=== PATIENT | female | born 2000 | race African-American/Black ===

== ENCOUNTER 2021-12-10 11:47 | Emergency (ER) | payer BC ==
[~2021-12-10] VITALS: Ht 157.5 cm; Wt 68.0 kg
[2021-12-10] MEDS ORDERED: IV RINGERS,LACTATED 1000ML 1,000 ML IV ONE (12:30)
--- NOTE | 2021-12-10 12:39 | PHYS DOC ---
Past Medical History Past Medical History: No Pertinent History Past Surgical History: No Surgical History Smoking Status: Never Smoker Alcohol Use: None General Adult EDM: Chief Complaint: CONTISPATION HPI: HPI: Patient is a 21 year old female who presents with concerns regarding constipation. She states that the last normal bowel movement she had was about 3 days ago. Since that time, she reports having to strain significantly in order to pass very small, firm bowel movements along with mucus and some blood. Patient denies fever, chills, abdominal pain, nausea, vomiting, dysuria, hematuria. Review of Systems: Review of Systems: Constitutional: See HPI Eyes: Denies change in visual acuity, visual field deficits or discharge HENT: Denies ear pain, nasal congestion or sore throat Respiratory: Denies cough or shortness of breath Cardiovascular: Denies chest pain, palpitations or edema GI: See HPI : See HPI Musculoskeletal: Denies back pain or joint pain Integument: Denies rash or other skin lesion Neurologic: Denies headache, focal weakness or sensory changes Heart Score: C/O Chest Pain: No Current Medications: Current Medications Medications (Trade) Dose Ordered Sig/Phoebe Start Time Stop Time Status Last Admin Dose Admin Ketorolac Tromethamine (Toradol 15mg Vial) 15 mg 1X ONCE 12/10/21 13:00 12/10/21 13:01 Ringer's Solution 1,000 ml @ 1,000 mls/hr 1X ONCE 12/10/21 12:30 12/10/21 13:29 Allergies: Allergies: Allergies Coded Allergies Type Severity Reaction Last Updated Verified No Known Drug Allergies 12/10/21 No Physical Exam: PE: Constitutional: Well developed, well nourished, no acute distress, non-toxic appearance. HENT: Normocephalic, atraumatic, bilateral external ears normal, oropharynx moist, no oral exudates, nose normal. Eyes: EOMI, conjunctiva normal, no discharge. Neck: Normal range of motion, no stridor. Abdomen: Bowel sounds normal, soft, no tenderness, no masses, no pulsatile masses. Rectal: No external hemorrhoids or jeniffer blood appreciated, minimal streaked blood noted on undergarment consistent with per rectum bleeding, sphincter tone intact, palpable nonthrombosed hemorroids. Skin: Warm, dry, no erythema, no rash. Extremities: No tenderness, no cyanosis, no clubbing, ROM intact, no edema. Neurologic: Alert and oriented x4, normal motor function, normal sensory function, no focal deficits noted. Current Patient Data: Labs: Laboratory Tests Test 12/10/21 12:00 12/10/21 12:06 12/10/21 12:35 Urine Collection Type Unknown Urine Color (Auto) Light yellow Urine Turbidity Clear Urine pH (Auto) 7.0 (<5.0-8.0) Urine Specific [place] 1.025 (1.000-1.030) Urine Protein (Auto) Negative mg/dL (Negative) Urine Glucose (Auto)(UA) Negative mg/dL (Negative) Urine Ketones (Auto) Negative mg/dL (Negative) Urine Blood (Auto) Large (Negative) Urine Nitrite Negative (Negative) Urine Bilirubin (Auto) Negative (Negative) Urine Urobilinogen (Auto) Normal mg/dL (Normal) Urine Leukocyte Esterase (Auto) Small (Negative) Urine RBC 20-40 /HPF (0-2) Urine WBC 11-20 /HPF (0-4) Urine Squamous Epithelial Cells Few /LPF Urine Bacteria Few /HPF (0-FEW) Urine Mucus Slight /LPF Bedside Urine HCG, Qualitative Hcg negative (Negative) White Blood Count 7.0 x10^3/uL (4.0-11.0) Red Blood Count 4.30 x10^6/uL (3.50-5.40) Hemoglobin 12.8 g/dL (12.0-15.5) Hematocrit 38.1 % (36.0-47.0) Mean Corpuscular Volume 89 fL (79-100) Mean Corpuscular Hemoglobin 30 pg (25-35) Mean Corpuscular Hemoglobin Concent 34 g/dL (31-37) Red Cell Distribution Width 12.9 % (11.5-14.5) Platelet Count 309 x10^3/uL (140-400) Neutrophils (%) (Auto) 58 % (31-73) Lymphocytes (%) (Auto) 32 % (24-48) Monocytes (%) (Auto) 6 % (0-9) Eosinophils (%) (Auto) 3 % (0-3) Basophils (%) (Auto) 1 % (0-3) Neutrophils # (Auto) 4.0 x10^3/uL (1.8-7.7) Lymphocytes # (Auto) 2.2 x10^3/uL (1.0-4.8) Monocytes # (Auto) 0.4 x10^3/uL (0.0-1.1) Eosinophils # (Auto) 0.2 x10^3/uL (0.0-0.7) Basophils # (Auto) 0.0 x10^3/uL (0.0-0.2) Sodium Level 140 mmol/L (136-145) Potassium Level 3.6 mmol/L (3.5-5.1) Chloride Level 106 mmol/L (98-107) Carbon Dioxide Level 25 mmol/L (21-32) Anion Gap 9 (6-14) Blood Urea Nitrogen 11 mg/dL (7-20) Creatinine 0.8 mg/dL (0.6-1.0) Estimated GFR (Cockcroft-Gault) 107.6 BUN/Creatinine Ratio 14 (6-20) Glucose Level 93 mg/dL (70-99) Calcium Level 8.8 mg/dL (8.5-10.1) Total Bilirubin 0.3 mg/dL (0.2-1.0) Aspartate Amino Transf (AST/SGOT) 19 U/L (15-37) Alanine Aminotransferase (ALT/SGPT) 21 U/L (14-59) Alkaline Phosphatase 74 U/L (46-116) Total Protein 8.0 g/dL (6.4-8.2) Albumin 3.7 g/dL (3.4-5.0) Albumin/Globulin Ratio 0.9 (1.0-1.7) Lipase 51 U/L (73-393) Vital Signs: Vital Signs Date Time Temp Pulse Resp B/P (MAP) Pulse Ox O2 Delivery O2 Flow Rate FiO2 12/10/21 12:00 98.6 70 16 112/61 (78) 100 Room Air 98.6 Radiology/Procedures: Radiology/Procedures: PROCEDURE: CT ABDOMEN PELVIS WO CONTRAST EXAMINATION: Noncontrast CT of the abdomen and pelvis INDICATION: Abdominal pain, UTI, bloody mucus in stool. COMPARISONS: None TECHNIQUE: Axial 3 mm thick sections were obtained without oral or IV contrast. Sagittal and coronal reformats were obtained. FINDINGS: KIDNEYS AND RENAL COLLECTING SYSTEMS RIGHT KIDNEY AND URETER: No evidence of right renal or ureteric calculi. No hydronephrosis. No focal renal lesions, within the limits of this noncontrast examination. LEFT KIDNEY AND URETER: No evidence of left renal or ureteric calculi. No hydronephrosis. No focal renal lesions, within the limits of this noncontrast examination. URINARY BLADDER: Unremarkable OTHER: The visualized lung bases are clear. The evaluation of the solid organs is limited due to lack of IV contrast. The evaluation of bowel is limited due to lack of oral contrast. Liver is normal in size and attenuation. No focal hepatic lesions. The gallbladder, spleen, and renals are unremarkable. Pancreas is grossly unremarkable. There is some haziness adjacent to the uncinate process (axial image 28/2). No main pancreatic ductal dilation. Stomach is unremarkable. There is a moderate colorectal stool burden. No evidence of obstruction or focal inflammatory changes appreciated. Index is not definitely visualized. No pathologically enlarged abdominal or pelvic adenopathy. No significant intra-abdominal free air or fluid. Mild stranding within the root of the mesentery. Mild diastases of the anterior abdominal recti muscles with small umbilical and periumbilical fat-containing hernias. Anteverted normal appearing uterus is present. No suspicious adnexal masses. No acute or suspicious osseous abnormalities. IMPRESSION: 1. No imaging findings to suggest urinary tract infection or obstructive uropathy. 2. Nonspecific fat stranding adjacent to the uncinate process/mesenteric root. This may reflect mesenteric panniculitis, usually an incidental finding of no clinical significance. Recommend correlation with lipase levels to exclude acute pancreatitis. 3. Moderate colorectal stool burden. Recommend clinical correlation for [id number] constipation. PRQS compliance statement - One or more of the following individualized dose reduction techniques were utilized for this study: 1. Automated exposure control 2. Adjustment of the mA and/or kV according to patient size 3. Use of iterative reconstruction technique Electronically signed by: Sulaiman Dunn DO (12/10/2021 2:29 PM) [id number] Course & Med Decision Making: Course & Med Decision Making Pertinent Labs and Imaging studies reviewed. (See chart for details) Exam today reveals UTI with hematuria as well as internal hemorrhoids. Patient was counseled on management of constipation with MiraLAX and Dulcolax. Patient received 1 g IV Rocephin while in the department to treat her UTI. Return precautions were provided. Contact information for GI follow-up was provided, should patient feel the current treatment plan is not effective. Patient understands and is agreeable to discharge plan. Dragon Disclaimer: Dragon Disclaimer: This electronic medical record was generated, in whole or in part, using a voice recognition dictation system. Departure Departure Impression: Primary Impression: Constipation in female Additional Impressions: Internal hemorrhoids without complication Urinary tract infection with hematuria Qualified Codes: N30.01 - Acute cystitis with hematuria Disposition: HOME / SELF CARE / HOMELESS Condition: STABLE Referrals: LUZ MOTA MD Patient Instructions: Constipation, Adult, [id number], Hemorrhoids, [id number], Urinary Tract Infection, [id number] Additional Instructions: EMERGENCY DEPARTMENT GENERAL DISCHARGE INSTRUCTIONS Thank you for coming to [facility] Emergency Department (ED) today and trusting us with you care. We trust that you had a positive experience in our Emergency Department. If you wish to speak to the department management, you may call the director at . YOUR FOLLOW UP INSTRUCTIONS ARE FOLLOWS: 1. Follow up with your primary care doctor. If you do not have a primary doctor, please ask for a resource list of physicians or clinics that may be able to assist you with follow up care. 2. The emergency provider has interpreted your imaging studies, if any were ordered. The radiology it desktop support specialist also reviewed them. If there is a change in the findings, you will be notified in 48 hours when at all possible. 3. If a lab test or culture has been done, your results will be reviewed and you will be notified if you need a change in treatment. 4. Follow instructions verbalized to you and refer to the printouts if needed. ADDITIONAL INSTRUCTIONS AND INFORMATION: 1. Your care today has been supervised by a physician who is specially trained in emergency care. Many problems require more than one evaluation for a complete diagnosis and treatment. We recommend that you schedule your follow up appointment as recommended to ensure complete treatment of you illness or injury. If you are unable to obtain follow up care and continue to have a problem, or if your condition worsens, we recommend that you return to the ED. 2. We are not able to safely determine your condition over the phone nor are we able to give sound medical advice over the phone. For these safety reasons, if you call for medical advice we will ask you to come to the ED for further evaluation. 3. If you have any questions regarding these discharge instructions please call the ED at . SAFETY INFORMATION: In the interest of safety, wellness, and injury prevention; we encourage you to wear your seat belt, if you smoke; quite smoking, and we encourage family to use a protective helmet for bicycling and other sporting events that present an increased risk for head injury. IF YOUR SYMPTOMS WORSEN OR NEW SYMPTOMS DEVELOP, OR YOU HAVE CONCERNS ABOUT YOUR CONDITION; OR IF YOUR CONDITION WORSENS WHILE YOU ARE WAITING FOR YOUR FOLLOW UP APPOINTMENT; EITHER CONTACT YOUR PRIMARY CARE DOCTOR, THE PHYSICIAN WHOSE NAME A ND NUMBER YOU WERE GIVEN, OR RETURN TO THE ED IMMEDIATELY. Scripts Bisacodyl (DULCOLAX) 10 Mg Supp.rect 1 SUPP RC DAILY for constipation for 10 Days, #10 SUPP 0 Refills Prov: KRZYSZTOF LOONEY 12/10/21 Polyethylene Glycol 3350 (MIRALAX) 119 Gm Powder 1 EA PO DAILY for constipation, #527 GM 0 Refills dissolve in water Prov: KRZYSZTOF LOONEY 12/10/21 KRZYSZTOF LOONEY December 10, 2021 12:39
[2021-12-10 12:47] LABS: BASO % 1 % (0-3); EOS # 0.2 x10^3/uL (0.0-0.7); EOS % 3 % (0-3); HEMATOCRIT 38.1 % (36.0-47.0); HEMOGLOBIN 12.8 g/dL (12.0-15.5); LYMPH # 2.2 x10^3/uL (1.0-4.8); LYMPH % 32 % (24-48); MEAN CORPUSCULAR HEMOGLOBIN 30 pg (25-35); MEAN CORPUSCULAR HGB CONC 34 g/dL (31-37); MEAN CORPUSCULAR VOLUME 89 fL (79-100); MONO # 0.4 x10^3/uL (0.0-1.1); MONO % 6 % (0-9); NEUT % 58 % (31-73); PLATELET COUNT 309 x10^3/uL (140-400); RED CELL DISTRIBUTION WIDTH 12.9 % (11.5-14.5)
[2021-12-10] MEDS ORDERED: KETOROLAC 15 MG/ML VIAL. IVP ONE (13:00)
[2021-12-10 13:09] LABS: CALCIUM 8.8 mg/dL (8.5-10.1); CREATININE 0.8 mg/dL (0.6-1.0); GFR 107.6; POTASSIUM 3.6 mmol/L (3.5-5.1)
[2021-12-10 13:15] LABS: ALBUMIN 3.7 g/dL (3.4-5.0); ALBUMIN/GLOBULIN RATIO 0.9 (1.0-1.7); TOTAL BILIRUBIN 0.3 mg/dL (0.2-1.0)
[2021-12-10 13:32] LABS: BACTERIA,URINE FEW /HPF (0-FEW); RBC,URINE 20-40 /HPF (0-2)
[2021-12-10] MEDS ORDERED: cefTRIAXone IV Push 1 GM VIAL. IVP ONE (13:45)
--- NOTE | 2021-12-10 14:31 | RAD ---
EXAMINATION: Noncontrast CT of the abdomen and pelvis INDICATION: Abdominal pain, UTI, bloody mucus in stool. COMPARISONS: None TECHNIQUE: Axial 3 mm thick sections were obtained without oral or IV contrast. Sagittal and coronal reformats were obtained. FINDINGS: KIDNEYS AND RENAL COLLECTING SYSTEMS RIGHT KIDNEY AND URETER: No evidence of right renal or ureteric calculi. No hydronephrosis. No focal renal lesions, within the limits of this noncontrast examination. LEFT KIDNEY AND URETER: No evidence of left renal or ureteric calculi. No hydronephrosis. No focal renal lesions, within the limits of this noncontrast examination. URINARY BLADDER: Unremarkable OTHER: The visualized lung bases are clear. The evaluation of the solid organs is limited due to lack of IV contrast. The evaluation of bowel is limited due to lack of oral contrast. Liver is normal in size and attenuation. No focal hepatic lesions. The gallbladder, spleen, and renal s are unremarkable. Pancreas is grossly unremarkable. There is some haziness adjacent to the uncinate process (axial image 28/2). No main pancreatic ductal dilation. Stomach is unremarkable. There is a moderate colorectal stool burden. No evidence of obstruction or f ocal inflammatory changes appreciated. Index is not definitely visualized. No pathologically enlarged abdominal or pelvic adenopathy. No significant intra-abdominal free air or fluid. Mild stranding wit hin the root of the mesentery. Mild diastases of the anterior abdominal recti muscles with small umbilical and periumbilical fat-con taining hernias. Anteverted normal appearing uterus is present. No suspicious adnexal masses. No acute or suspicious osseous abnormalities. IMPRESSION: 1. No imaging findings to suggest urinary tract infection or obstructive uropathy. 2. Nonspecific fat stranding adjacent to the uncinate process/mesenteric root. This may reflect mesen teric panniculitis, usually an incidental finding of no clinical significance. Recommend correlation with lipase levels to exclude acute pancreatitis. 3. Moderate colorectal stool burden. Recommend clinical correlation for [id number] constipation . PRQS compliance statement - One or more of the following individualized dose reduction techniques wer e utilized for this study: 1. Automated exposure control 2. Adjustment of the mA and/or kV according to patient size 3. Use of iterative reconstruction technique Electronically signed by: Sulaiman Dunn DO (12/10/2021 2:29 PM) [id number]
[2021-12-10 14:45] VITALS: BP 102/57
[2021-12-10] MEDS ORDERED: POLY119P4 PO (15:06)
[2021-12-10] MEDS ORDERED: BISA10SU55 RC (15:06)
== END 2021-12-10 15:16 | disposition home or self-care (01) ==
LOC: ER 11:47 → EDSEX 11:47 → ER 15:16
DX: N30.01 Acute cystitis with hematuria (principal); K64.8 Other hemorrhoids; K59.00 Constipation, unspecified
CPT/HCPCS: 36415; 74176; 80053; 81001; 81025; 83690; 85025; 87086; 96361; 96374; 96375; 99285; J0696; J1885; J7120